=== PATIENT | female | born 1935 | race African-American/Black ===

== ENCOUNTER 2020-08-28 15:24 | Emergency (ER) | payer OTHER | END 2020-08-28 20:33 | disposition left against medical advice (07) | LOC: EDBD 15:24 → ER 15:29 | DX: I95.9 Hypotension, unspecified (principal); R94.31 Abnormal electrocardiogram [ECG] [EKG]; Z53.21 Procedure and treatment not carried out due to patient leaving prior to being seen by health care provider | CPT/HCPCS: 93005 ==